=== PATIENT | female | born 1995 | race Caucasian/White ===

== ENCOUNTER 2017-02-22 19:34 | Emergency (ER) | payer BC, OTHER ==
[2017-02-22 20:01] VITALS: BP 152/79
[2017-02-22] MEDS ORDERED: Ciprofloxacin 0.3% OPTH.SOL* 2.5 ML BTL RIGHT EYE ONE (20:47)
--- NOTE | 2017-02-22 20:47 | ED ---
Throat Pain/Nasal Congestion - HPI Summary HPI Summary: Patient presents with right eye irritation after falling asleep in her contacts. She regularly sleeps in contacts, but for some reason today the eye was irritated when she woke. She took the contact out and ever since then she has had a mild foreign body sensation with mild blurring and clear drainage. She is wearing her glasses, which help. She denies PICKENS, nausea or fever. 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 No known hx of CVA - Social History Occupation: Student Lives: Alone Alcohol Use: Occasionally Hx Substance Use: No Substance Use Type: Reports: None Hx Tobacco Use: No Smoking Status (MU): Never Smoked Tobacco Review of Systems Positive: Photophobia, Blurred Vision - mild with constant tearing, Drainage - clear, Erythema - sclera All Other Systems Reviewed And Are Negative: Yes Physical Exam Triage Information Reviewed: Yes Vital Signs On Initial Exam: Initial Vitals Temp Pulse Resp BP Pulse Ox 97.9 F 93 18 152/79 100 02/22/17 19:58 02/22/17 19:58 02/22/17 19:58 02/22/17 19:58 02/22/17 19:58 Vital Signs Reviewed: Yes Appearance: Positive: Well-Nourished, Pain Distress Skin: Positive: Warm, Skin Color Reflects Adequate Perfusion, Dry, Soft Head/Face: Positive: Normal Head/Face Inspection Eyes: Positive: EOMI, NEREYDA, Conjunctiva Inflammed - right, Discharge - clear tearing ENT: Positive: Hearing grossly normal Respiratory/Lung Sounds: Positive: Breath Sounds Present Cardiovascular: Positive: RRR Neurological: Positive: Sensory/Motor Intact, Alert, Oriented to Person Place, Time Psychiatric: Positive: Affect/Mood Appropriate AVPU Assessment: Alert Procedures - Eye Procedure Alcaine Drops Administered: Yes Antibiotic Ointment/Drps Admin: right eye Diagnostics - Vital Signs Vital Signs Temp Pulse Resp BP Pulse Ox 02/22/17 20:01 97.9 F 86 18 152/79 100 02/22/17 19:58 97.9 F 93 18 152/79 100 - Laboratory Lab Statement: Any lab studies that have been ordered have been reviewed, and results considered in the medical decision making process. EENT Course/Dx - Differential Diagnoses Differential Diagnoses: Abrasion, Corneal Abrasion, Detached Retina, Keratitis, Pain of Unknown Etiology, Penetrating Injury, Retinal Artery Occlusion, Uveitis - Diagnoses Provider Diagnoses: Corneal abrasion due to contact lens Discharge - Discharge Plan Condition: Stable Disposition: HOME Patient Education Materials: Corneal Abrasion (ED) Forms: *Work Release Referrals: [facility] [Primary Care Provider] - Andres Henley MD [Medical Doctor] - Additional Instructions: Please use the drops as directed until symptoms have been resolved for [address] Henley's office tomorrow for an appointment Friday for evaluation. Use ibuprofen 600-800mg three times daily with meals for the next 3- 5 days to reduce swelling and pain. Return to the emergency department if symptoms worsen.
[2017-02-22] MEDS ORDERED: Ibuprofen TAB* 400 MG PO ONE (20:51)
[2017-02-22] MEDS ORDERED: Ibuprofen TAB* 800 MG PO ONE (20:51)
== END 2017-02-22 20:59 | disposition home or self-care (01) ==
LOC: ED 19:34
DX: H18.829 Corneal disorder due to contact lens, unspecified eye (principal); H53.149 Visual discomfort, unspecified; H53.8 Other visual disturbances
CPT/HCPCS: 99282; A9270-GY

== ENCOUNTER 2017-12-19 20:32 | Emergency (ER) | payer BC ==
[2017-12-19 21:44] VITALS: BP 146/96
[2017-12-19] MEDS ORDERED: Oseltamivir CAP* 75 MG CAP PO ONE (21:45)
[2017-12-19] MEDS ORDERED: Oseltamivir CAP* 75 MG CAP ONE (21:47)
--- NOTE | 2017-12-19 21:48 | ED ---
Influenza-Like Illness - HPI Summary HPI Summary: 22 female presents to ED with complaints of fever, cough, congestion, and flu like illness that began yesterday. Patient had cold like symptoms a few days before however symptoms worsened and were accompanied by fever yesterday. Has been exposed to sick contacts while at work. Admits to productive cough. Patient denies vomiting, nausea, diarrhea. Has not taken any medication. States temperature was at 103F. No other complaints. No PMHx. Did have flu shot this year. - History of Current Complaint Chief Complaint: EDFluSymptoms Time Seen by Provider: 12/19/17 20:44 Hx Obtained From: Patient Onset/Duration: Sudden Onset, Lasting Days - 1-2, Still Present Severity: Moderate Associated Signs & Symptoms: Fever, Myalgia, Cough, Sore Throat, Nasal Congestion, Headache - Allergy/Home Medications Allergies/Adverse Reactions: Allergies Allergy/AdvReac Type Severity Reaction Status Date / Time No Known Allergies Allergy Verified 01/16/17 08:54 PMH/Surg Hx/FS Hx/Imm Hx Endocrine/Hematology History: Denies: Hx Diabetes Cardiovascular History: Reports: Other Cardiovascular Problems/Disorders - 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 NO CURRENT PROBLEMS Denies: Hx Hypertension, Hx Pacemaker/ICD Sensory History: Reports: Hx Contacts or Glasses - Glasses Denies: Hx Hearing Aid Opthamlomology History: Reports: Hx Contacts or Glasses - Glasses Psychiatric History: Denies: Hx Panic Disorder - Surgical History Surgery Procedure, Year, and Place: 2008 OSTEOCHONDROMA REMOVAL LEFT KNEE - Immunization History Date of Influenza Vaccine: 09/2017 Immunizations Up to Date: Yes Infectious Disease History: No Infectious Disease History: Denies: Traveled Outside the [place] in Last 30 Days - Family History Known Family History: Positive: Other - Blood clot. No known hx of CVA - Social History Alcohol Use: Occasionally Hx Substance Use: No Substance Use Type: Reports: None Hx Tobacco Use: No Smoking Status (MU): Never Smoked Tobacco Review of Systems Positive: Fever, Chills, Fatigue Eyes: Negative Positive: Sore Throat, Nasal Discharge Cardiovascular: Negative Positive: Cough Gastrointestinal: Negative Positive: Myalgia Positive: Headache All Other Systems Reviewed And Are Negative: Yes Physical Exam Triage Information Reviewed: Yes Vital Signs On Initial Exam: Initial Vitals Temp Pulse Resp BP Pulse Ox 97.0 F 91 16 169/104 99 12/19/17 20:35 02/09/18 20:35 12/19/17 20:35 12/19/17 20:35 12/19/17 20:35 146/46 BP improved, still slightly elevated and recommended follow up with pcp for recheck. patient was anxious about fluctuating temperatures which may be elevating BP Vital Signs Reviewed: Yes Appearance: Positive: Well-Appearing, No Pain Distress, Well-Nourished Skin: Positive: Warm, Skin Color Reflects Adequate Perfusion, Dry. Negative: Cold, Cyanosis @, Pale, Erythema @ Head/Face: Positive: Normal Head/Face Inspection Eyes: Positive: Conjunctiva Clear ENT: Positive: Normal ENT inspection, Hearing grossly normal, Pharyngeal erythema, Nasal congestion, TMs normal, Uvula midline. Negative: Tonsillar swelling, Tonsillar exudate, Sinus tenderness Dental: Positive: Cervical Lymphadenopathy Neck: Positive: Supple, Nontender Respiratory/Lung Sounds: Positive: Clear to Auscultation, Breath Sounds Present. Negative: Rales, Rhonchi, Wheezes Cardiovascular: Positive: Normal, RRR, Pulses are Symmetrical in both Upper and Lower Extremities. Negative: Murmur, Rub Abdomen Description: Positive: Nontender, Soft Bowel Sounds: Positive: Present Musculoskeletal: Positive: Normal, Strength/ROM Intact Neurological: Positive: Normal, Sensory/Motor Intact, Alert, Oriented to Person Place, Time, Normal Gait Diagnostics - Vital Signs Vital Signs Temp Pulse Resp BP Pulse Ox 12/19/17 21:42 98.7 F 66 22 146/96 100 12/19/17 20:35 97.0 F 91 16 169/104 99 - Laboratory Lab Results: Lab Results 12/19/17 Range/Units 20:59 Influenza A (Rapid) Negative (Negative) Influenza B (Rapid) Positive H (Negative) Lab Statement: Any lab studies that have been ordered have been reviewed, and results considered in the medical decision making process. Flu Symptom Course/Dx - Course Course Of Treatment: influenza culture obtained and positive for flu b. vitals normal while in ED. given first dose of tamiflu, continue at home. ibu/tylenol for fever and body aches. fluids, rest and symptomatic measures. aware of worsening signs and symptoms. no other concerns at this time. follow up pcp. - Diagnoses Differential Diagnosis/HQI/PQRI: Positive: Influenza Provider Diagnoses: Influenza B Discharge - Discharge Plan Condition: Stable Disposition: HOME Prescriptions: Oseltamivir CAP* [Tamiflu CAP*] 75 mg PO BID #9 cap Patient Education Materials: Influenza (ED) Referrals: Non Staff,Doctor [Primary Care Provider] - Additional Instructions: Take prescribed medication as directed for the next 5 days. Ibuprofen/tylenol for body aches and fever. Increase fluid intake and get plenty of rest. Any new or worsening symptoms please seek medical attention. Follow up with PCP.
== END 2017-12-19 21:57 | disposition home or self-care (01) ==
LOC: ED 20:32
DX: J11.1 Influenza due to unidentified influenza virus with other respiratory manifestations (principal)
CPT/HCPCS: 87502; 99282; A9270-GY